=== PATIENT | female | born 1985 | race Caucasian/White ===

== ENCOUNTER 2022-08-22 15:30 | Outpatient (RCR) | payer BC, SELFPAY ==
--- NOTE | 2022-07-18 16:46 | OT.OPOE ---
OT Outpatient Ortho Eval OT Outpatient Ortho Eval Start: 07/18/22 15:02 Freq: Status: Active Protocol: Document 07/18/22 15:03 LCN (Rec: 07/18/22 15:18 LCN Desktop) E-signed By Calista Dennis, OTR/L, CLT OT OP Ortho Eval Details Type Type Eval Complexity Low Insurance Information Insurance Information Blue Cross/Blue Shield Outpatient History/Precautions Current Condition/Medical Diagnosis Referring Provider Manny Willis MD Treatment Diagnosis Left distal radius fracture, non displaced with wrist pain, stiffness Date of Onset 05/22/22 Other Conditions anxiety, history of B hand numbness, c sect x 2. Was tested for ADHD. Medical/Functional History Medical History Reviewed Yes Prior Level of Function/Mobility Pt is an active woman with and 6, 10 yr old boys who play baseball and soccer. 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 Critical Job Demands Static Sitting,Other Other Critical Job Demands tying, meetings, site visits Hobbies yoga, jogging, kids events Oriented Mental Status No Concerns Ortho Subjective Subjective Subjective Marina Sung is an active 37 yr old who had a FOOSH on while skiing into L hand, suffering a distal radial fracture. She was casted and in a sling following, and saw Dr Willis 05/26/22. X ray with Dr. Willis noting good healing as of 06/28/22 and was transitioned from casting to a splint with tubigrip. She has already transitioned to using it minimally, now only for crowds, icy conditions. She has responded well with minimal edema, has more general aching as she is trying to use her hand more for combined movements, pushing, pulling, twist + lift. . Pain Assessment Pain Present Pain Present Pain Reported Location L wrist, radial side Description Tightness,Pressure,Dull, Achy, Pulling,With Movement, Heaviness Intensity 5 Goniometric Comments Goniometric Comments Goniometric Comments AROM -- L WE is 55 of 70. WF is [address] 15 of 30. UD 40 of 50. Home Visitor [employer] R is 52# and L 25# 2/10 pressure. Mcintosh pinch is 15.5 # R and 10# L ( 10 pressure at distal radius) 3 pt is 15# R and 10# L. Makes a full fist shape, has full tendon glides, no pain or tingling. OT Objective Data Hand Hand Dominance Right OT Problems Problems Problems Decreased Strength,Decreased Range of Motion,Lifting, Gripping,Pinching Assessment Assessment Assessment Given Marina's L distal radius fracture, she is having some? difficulty with mild edema, pain, ROM and strength loss of L hand/wrist and she would benefit from skilled OT to address these areas. Occupational Therapy Treatment Plan - OP Potential Rehabilitation Potential Excellent Set Goals Goals Set with Patient Yes Goals Goals In 8 weeks, Marina will demonstrate:? 1) Decreased pn to <2/10 80% of the time with sustained gripping, carrying groceries, and tolerating plank. 2) I HEP for stretching, gradual strengthening and self mgmt strategies. 3) improved L business dean strength to 45# and pinch to 13# with L wrist pain < 1/10. 4)??Pt to use adaptive strategies to protect joint integrity to support less pain with ADL. Target Date 09/17/22 Progress set Treatment Plan Treatment Plan Evaluation,Edema Control,Joint Mobilization,Manual Therapy, Ultrasound,Therapeutic Exercise,Therapeutic Activities,Self-Care/Home Management,Education Expected Frequency 1x Week Expected Duration 6-8 Weeks Certification Certification I Certify That: Therapy Services Provided, Therapy Plan Established, Therapy Plan Reviewed
--- NOTE | 2022-08-22 18:26 | OT.OPODN ---
OT Outpatient Ortho Daily Note OT Outpatient Ortho Daily Note Start: 07/18/22 15:02 Freq: Status: Active Protocol: Document 08/22/22 18:08 LCN (Rec: 08/22/22 18:23 LCN Desktop) E-signed By Calista Dennis, OTR/L, CLT Type of Note Type of Note Type of Note Daily Note,Note To MD,Recert/ Progress Note Visit Number [id number] Insurance Information Insurance Information Blue Cross/Blue Shield Outpatient History/Precautions Current Condition/Medical Diagnosis Referring Provider Manny Willis MD Treatment Diagnosis Left distal radius fracture, non displaced with wrist pain, stiffness Date of Onset 05/22/22 Other Conditions anxiety, history of B hand numbness, c sect x 2. Was tested for ADHD. Medical/Functional History Medical History Reviewed Yes Prior Level of Function/Mobility Pt is an active woman with and 6, 10 yr old boys who play baseball and soccer. 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 Critical Job Demands Static Sitting,Other Other Critical Job Demands tying, meetings, site visits Hobbies yoga, jogging, kids events Oriented Mental Status No Concerns Ortho Subjective Subjective Subjective 08/22/22 Marina is able to do planks from knees without pain, push ups are sore ( per dynamic end range of WR EX). Has soft tissue injury based pressure at base of 1st, 2nd metacarpal areas, limited glide at lunate. Still hard to federica back pack with L side per complexity of movement. Please with the level of control she has for her wrist, has returned to all household tasks and ball play with kids without pain. Pt plans to cancel Ortho visit tomorrow and will have one more OT visit in 2 weeks for HEP progression to support return to yoga. FROM [facility]--Marina Staples is an active 37 yr old who had a FOOSH on while skiing into L hand, suffering a distal radial fracture. She was casted and in a sling following, and saw Dr Willis 05/26/22. X ray with Dr. Willis noting good healing as of 06/28/22 and was transitioned from casting to a splint with tubigrip. SHe has already transitioned to using it minimally, now only for crowds, icy conditions. She has responded well with minimal edema, has more general aching as she is trying to use her hand more for combined movements, pushing, pulling, twist + lift . Pain Assessment Pain Present Pain Present Pain Reported Location L wrist, radial side Description Tightness,Pressure,Dull, Achy, Pulling,With Movement, Heaviness Intensity 1 OT OP Daily Ortho Note/Assessment Therapeutic Exercise Therapeutic Exercise Minutes (minutes) 12 Therapeutic Exercise Comments Reviewed, doing well w self tractioning in flexion with elbow drop stretch. Added additional self tractioning of TH/IF pull into WR FL stretch to open scaph/lunate/capitate areas. Upgraded to dynamic stabilization with flex bar medium resistance for WR EX, WR FL, supination, pronation, UD and RD, 2 sec holds 10 reps 1-2x/day. Work up to 3 sets as able. Shown how to use for mobilizing her forearm and introduced oscillations. Manual Therapy Manual Therapy Minutes (minutes) 16 Manual Therapy Comments STM of wrist FL EX/FL mm bulk . Joint mobilization of DRUJ, PCR, DCR of L wrist, LLPS for WE, WF, RD, UD. Goniometric Comments Goniometric Comments Goniometric Comments 08/22/22--Land Use Planner pos 1 60# R and 55# L (1/10 pressure at distal volar radius/lateral pillar. WE to 68 and WF to 65 degrees of 80. 08/15/22-- Pre OT WE 82, WR FL AROM 65, AA 72. Post OT improved to 75 degrees. 08/08/22--At end of session, improved motion. WE to 65 AA, WR FL to 73, RD 30, UD to 45 07/26/22-- At end of session, improved motion. WE to 70, WR FL to 60, RD stiff at 15, UD to 45 pinches at 1st dorsal compartment From eval--AROM -- L WE is 55 of 70. WF is [address] 15 of 30. UD 40 of 50. Land Use Planner R is 52# and L 25# 2/10 pressure. Mcintosh pinch is 15.5 # R and 10# L ( 3/10 pressure at distal radius) 3 pt is 15# R and 10# L. Makes a full fist shape, has full tendon glides, no pain or tingling. OT Objective Data Hand Hand Dominance Right Additional Information Objective Additional Information HEP-- 08/22/22 -- flex bar medium resistance for WR EX, WR FL, supination, pronation, UD and RD, 2 sec holds 10 reps 1-2x/ day. Work up to 3 sets as able. Knee based push ups from fist position. 08/15/22-- Red band WR EX, RD, FL. Land Use Planner is 60# R and 40# L. 08/08/22--self tractioning in flexion with elbow drop stretch. 4 pts weight shifting w lateral shifts. 07/26/22--table top weight shifting eval--WR FL EX UD RD glides on table top. Red putty in supinated, pronated, neutral position. OT Problems Problems Problems Decreased Strength,Decreased Range of Motion,Lifting, Gripping,Pinching Patient Potential Excellent Assessment Assessment Assessment Pt doing much better, less pain, more motion.Working up to dynamic stabilization for L wrist, as she actively plays ball sports with her kids. Given Marina's L distal radius fracture, she is having some? difficulty with mild edema, pain, ROM and strength loss of L hand/wrist and she would benefit from skilled OT to address these areas. Occupational Therapy Treatment Plan - OP Potential Rehabilitation Potential Excellent Set Goals Goals Set with Patient Yes Goals Goals In 8 weeks, Marina will demonstrate:? 1) Decreased pn to <2/10 80% of the time with sustained gripping, carrying groceries, and tolerating plank. (GOAL MET 08/22/22) 2) I HEP for stretching, gradual strengthening and self mgmt strategies. (GOAL CONTINUED for dynamic stabilization for returning to high level yoga, ball sports play) 3) improved L heliarc welder strength to 45# and pinch to 13# with L wrist pain < 1/10. (GOAL EXCEEDED 08/22/22) 4)??Pt to use adaptive strategies to protect joint integrity to support less pain with ADL. (GOAL MET 08/08/22) Target Date 09/17/22 Progress set Treatment Plan Treatment Plan Evaluation,Edema Control,Joint Mobilization,Manual Therapy, Ultrasound,Therapeutic Exercise,Therapeutic Activities,Self-Care/Home Management,Education Expected Frequency 1x Week Expected Duration 6-8 Weeks OT Treatment Minutes Treatment Minutes Untimed Treatment Minutes 0 Timed Treatment Minutes 28 Total Treatment Minutes 28 Occupational Therapy Billing Units Billing Units Manual Therapy 1 Therapeutic Exercise 1 Certification Certification I Certify That: Therapy Services Provided, Therapy Plan Established, Therapy Plan Reviewed
== END 2022-10-20 08:11 | disposition home or self-care (01) ==
PROVIDERS: PCP Family Medicine; Visit Provider Orthopaedic Surgery Sports Medicine
DX: S62.102D Fracture of unspecified carpal bone, left wrist, subsequent encounter for fracture with routine healing (principal); Z51.89 Encounter for other specified aftercare
CPT/HCPCS: 97110; 97140; 97165; 97535; X5282

== ENCOUNTER 2023-08-09 11:27 | Outpatient (CLI) | payer BC, SELFPAY | END 2023-08-09 11:28 | disposition home or self-care (01) | LOC: FRMREF 11:28 | PROVIDERS: PCP Family Medicine; Visit Provider Obstetrics & Gynecology | DX: Z13.220 Encounter for screening for lipoid disorders (principal) | CPT/HCPCS: 80061 ==

== ENCOUNTER 2023-11-03 13:28 | Outpatient (CLI) | payer BC, SELFPAY ==
--- NOTE | 2023-11-03 13:40 | CRLHL7_ITS ---
For Patients: As a result of the Century Cures Act, medical imaging exams and procedure reports are released immediately into your electronic medical record. You may view this report before your referring provider. If you have questions, please contact your health care provider. BILATERAL SCREENING MAMMOGRAM WITH COMPUTER-AIDED DETECTION AND TOMOSYNTHESIS TECHNIQUE: CC and MLO views were obtained. These mammographic images have been obtained using full-field digital technique. These mammographic images were interpreted with the benefit of computer-aided detection. Breast Tomosynthesis was used in this interpretation. COMPARISON FILM: Baseline. FINDINGS: The breasts are extremely dense, which lowers the sensitivity of mammography. IMPRESSION: There is no radiographic evidence for malignancy. ASSESSMENT: BI-RADS Category 1: Negative RECOMMENDATION: Routine screening mammogram in 1 year. A lay language report of this examination will be provided to the patient. Gwyn Sotelo M.D. Diagnostic Radiologist [email or web address] SP/Dictated by: Gwyn Sotelo MD @ 11/06/2023 12:15:00 PM (Electronically Signed)
== END 2023-11-03 13:29 | disposition home or self-care (01) ==
LOC: MAMMO 13:29
PROVIDERS: Visit Provider Obstetrics & Gynecology
DX: Z12.31 Encounter for screening mammogram for malignant neoplasm of breast (principal); R92.2 Inconclusive mammogram
CPT/HCPCS: 77063; 77067

== ENCOUNTER 2024-08-14 08:12 | Outpatient (CLI) | payer OTHER, SELFPAY | END 2024-08-14 08:13 | disposition home or self-care (01) | LOC: FRMREF 08:17 | PROVIDERS: Visit Provider Obstetrics & Gynecology | DX: N92.0 Excessive and frequent menstruation with regular cycle (principal) | CPT/HCPCS: 84443 ==

== ENCOUNTER 2024-08-20 12:17 | Outpatient (CLI) | payer OTHER, SELFPAY ==
--- NOTE | 2024-08-20 12:15 | CRLHL7_ITS ---
For Patients: As a result of the Century Cures Act, medical imaging exams and procedure reports are released immediately into your electronic medical record. You may view this report before your referring provider. If you have questions, please contact your health care provider. INDICATION: MENORRHAGIA COMPARISON: none TECHNIQUE: 2D lo scale and color Doppler images were acquired of the pelvis using a transabdominal and transvaginal approach. FINDINGS: Sonographic images demonstrate a normal size and smooth outer contour of the uterus. Uterus measures 8.1 cm in length by 4.1 cm in AP diameter by 4.5 cm in transverse dimension. The myometrium has a normal uniform echotexture. The endometrial lining measures 2.6 mm in composite thickness. The right ovary measures 2.8 x 1.8 x 1.5 cm in size and the left ovary measures 2.2 x 2.4 x 1.8 cm. The ovaries demonstrate normal arterial and venous blood flow on color Doppler analysis. There are no suspicious fluid collections within the cul-de-sac. IMPRESSION: Endometrial thickness 2.6 millimeters. No endometrial fluid. No uterine fibroid. Dictated by Gwyn Sotelo MD @ 08/20/2024 10:10:17 PM (Electronically Signed)
== END 2024-08-20 12:18 | disposition home or self-care (01) ==
LOC: US 12:18
PROVIDERS: Visit Provider Obstetrics & Gynecology
DX: N92.0 Excessive and frequent menstruation with regular cycle (principal); R93.89 Abnormal findings on diagnostic imaging of other specified body structures
CPT/HCPCS: 76830; 76856

== ENCOUNTER 2024-10-28 15:01 | Outpatient (CLI) | payer OTHER, SELFPAY | END 2024-10-28 15:02 | disposition home or self-care (01) | LOC: FRMREF 15:03 | PROVIDERS: Visit Provider Physician Assistant Medical | DX: R59.9 Enlarged lymph nodes, unspecified (principal) | CPT/HCPCS: 84443 ==

== ENCOUNTER 2025-02-05 10:21 | Outpatient (CLI) | payer OTHER, SELFPAY ==
--- NOTE | 2025-02-05 10:15 | CRLHL7_ITS ---
For Patients: As a result of the Cures Act, medical imaging exams and procedure reports are released immediately into your electronic medical record. You may view this report before your referring provider. If you have questions, please contact your health care provider. INDICATION: BILATERAL SCREENING MAMMOGRAM, ASYMPTOMATIC 39 Y/O FEMALE COMPARISON: 11/03/2023 TECHNIQUE: Digital mammogram in CC and MLO projections including computer-aided detection (CAD) and tomosynthesis. BREAST COMPOSITION: The breasts are heterogeneously dense, which may obscure small masses. FINDINGS: No suspicious findings. ASSESSMENT: BI-RADS 1 Negative RECOMMENDATION: Annual screening mammogram. A lay language report of this examination will be provided to the patient. Dictated by: Nicole Vinson MD @ 02/08/2025 07:25:25 (Electronically Signed)
== END 2025-02-05 10:22 | disposition home or self-care (01) ==
LOC: MAMMO 10:22
PROVIDERS: Visit Provider Obstetrics & Gynecology
DX: Z12.31 Encounter for screening mammogram for malignant neoplasm of breast (principal); R92.333 Mammographic heterogeneous density, bilateral breasts
CPT/HCPCS: 77063; 77067